=== PATIENT | male | born 1960 | race Caucasian/White ===

== ENCOUNTER 2019-10-28 06:56 | Emergency (ER) | payer MEDICARE, MEDICAID, SELFPAY ==
[2019-10-28 06:58] VITALS: BP 157/88; PULSE 101; RESP 17; O2SAT 96; BMI 28.5
--- NOTE | 2019-10-28 07:18 | XR_ITS ---
PROCEDURE: XR HAND LT MIN 3V CLINICAL INDICATION: pain COMPARISON: No exams were available for comparison FINDINGS: No fracture or dislocation. No lytic or blastic change. There is normal mineralization. The joint spaces are well-preserved. No significant degenerative/arthritic changes. No erosive changes evident. Other findings:There is some soft tissue swelling at the distal aspect of the 4th finger IMPRESSION: Soft tissue swelling otherwise negative Dictated by: Devyn Modi MD 10/28/2019 07:45 Electronically signed by Devyn Modi MD in [place] 10/28/2019 07:45
--- NOTE | 2019-10-28 07:48 | HMH.EDGENADL ---
ED Disposition Clinical Impression: Injury of finger Qualifiers: Encounter type: initial encounter Laterality: left Qualified Code(s): S69.92XA - Unspecified injury of left wrist, hand and finger(s), initial encounter Hematoma, subungual, finger, left Qualifiers: Encounter type: initial encounter Qualified Code(s): S60.10XA - Contusion of unspecified finger with damage to nail, initial encounter Disposition: Home, Self-Care Condition on Discharge: Good Instructions: DI for Finger Sprain Additional Instructions: use meds and see pcp for follow up Prescriptions: cephALEXin [Keflex 500mg Cap] 500 mg PO TID #30 cap Transmission Status: Pending to [facility] Referrals: Sameera Daily [Primary Care Provider] - - Critical Care Critical Care Time: No Attestation: On 10/28/19, the high probability of a clinically significant, sudden or life threatening deterioration of the following system(s) required my full and direct attention, intervention and personal management. The time I documented below is in addition to time spent performing reported procedures but includes the following listed in this critical care notation. Medical Decision Making - Medical Records Medical records reviewed: Yes: I reviewed the patient's medical records. - Petey Inquiry Pt receiving controlled substance: No Vital Signs: 10/28/19 06:58 Pulse Rate [Radial] 101 H Respiratory Rate 17 Blood Pressure [Right Arm] 157/88 H Blood Pressure Mean [Right Arm] 111 Blood Pressure Source [Right Arm] Automatic Cuff Blood Pressure Position [Right Arm] Sitting 02 Sat by Pulse Oximetry 96 Oxygen Delivery Method Room Air - Lab Data Lab results reviewed: Yes: I reviewed the patient's lab results. - Radiology Data #1 Image(s): Hand Image Reviewed: Yes I reviewed the patient's radiology image Preliminary Findings: No Fracture Seen General Adult HPI - General Chief complaint: PAIN Stated complaint: AO 10/23 injured Left index finger Time Seen by Provider: 10/28/19 07:15 Mode of Arrival: Ambulatory Source of Information: Patient, Medical Record Limitations: No Limitations Description of Symptoms (Recalled from ER Triage Doc. by RN): Hit his left ring finger with a hammer on Saturday - History of Present Illness HPI narrative: injured lt fourth finger a few days ago at home hit with hammer -has swelling and reddness and persistent pain Onset (ago): day(s) Location: left, upper extremity Severity: moderate Associated symptoms: denies other symptoms Treatments prior to arrival: none - Related Data Home Medications Medication Instructions Recorded Confirmed Amitriptyline HCl 100 mg PO DAILY 02/24/19 02/24/19 Gabapentin [Gabapentin 400mg Cap] 400 mg PO TID 02/24/19 02/24/19 Hydrocodone/Acetaminophen 1 each PO Q6HP PRN 02/24/19 02/24/19 [Hydrocodone-Acetamin 10-325 mg] Insulin Glargine,Hum.rec.anlog 15 units SQ DAILY 02/24/19 02/24/19 [Lantus Solostar 100 Units/mL 3mL flexpen] Insulin Glargine,Hum.rec.anlog 50 units SQ HS 02/24/19 02/24/19 [Lantus Solostar 100 Units/mL 3mL flexpen] Metoprolol Tartrate [Lopressor 25 mg PO DAILY 02/24/19 02/24/19 25mg tablet] Trazodone HCl 50 mg PO DAILY 02/24/19 02/24/19 glipiZIDE [Glipizide ER] 10 mg PO DAILY 02/24/19 02/24/19 lisinopriL [Lisinopril 10mg Tab] 10 mg PO DAILY 02/24/19 02/24/19 Previous Rx's Medication Instructions Recorded Ibuprofen [Ibuprofen 800mg 800 mg PO Q8HP PRN #20 tab 02/24/19 Tablet] cephALEXin [Keflex 500mg Cap] 500 mg PO TID #30 cap 10/28/19 Allergies Allergy/AdvReac Type Severity Reaction Status Date / Time Penicillins [PENICILLINS] Allergy Mild Verified 10/30/17 15:24 [facility] History - Hepatitis A Screen Drug use history?: No High risk sexual behaviors?: No History of sexually transmitted infection?: No Currently employed?: No Childcare worker?: No Do you have indoor plumbing?: Yes Do you
[2019-10-28 08:04] VITALS: BP 154/88; PULSE 81; RESP 18; TEMP 36.9; O2SAT 98
== END 2019-10-28 08:00 | disposition home or self-care (01) ==
PROVIDERS: Emergency Provider Emergency Medicine; PCP Family Medicine
DX: S60.142A Contusion of left ring finger with damage to nail, initial encounter (principal); W22.8XXA Striking against or struck by other objects, initial encounter; E11.9 Type 2 diabetes mellitus without complications; Z79.4 Long term (current) use of insulin; I10 Essential (primary) hypertension; Z88.0 Allergy status to penicillin
CPT/HCPCS: 11740; 73130; 99282

== ENCOUNTER → 2022-10-15 09:53 | Outpatient (POV) | payer MEDICARE, MEDICAID, SELFPAY ==
[2022-10-15 09:57] VITALS: BP 132/68; PULSE 97; RESP 20; O2SAT 94; BMI 30.6
--- NOTE | 2022-10-15 10:15 | EXP.PAIN.OV ---
HPI Data of Consult Patient: new to practice Consult date: 10/15/22 Requesting Physician: Lise Stewart APRN Consult Narrative Reason for consult: Low back pain, left leg pain, left hip pain History of present illness: Mr. Baugh is a 62 year old male who presents today as a new patient. He is a referral from [facility] primary care office. Today he rates his pain an 8 out of 10. Patient states his pain is all in his low back with radiating symptoms into his left hip and left leg. Patient does describe this as a constant aching, throbbing sensation that is worse with increased activity. He denies any specific trauma or injury that initially led to the symptoms. He does state that it progressively worsened over time and that it has been going on for years. Patient also has chronic left shoulder pain related to a previous rotator cuff tear and 2 different surgical interventions to repair this tear. Patient is a diabetic and also has a significant health history of COPD and peripheral artery disease. He does state that he is scheduled for surgical procedure at [place] on the of this month to deal with arterial blockages in his bilateral legs. Patient does also have nonhealing ulcers and states that he has also been told that he needs to have some toes on his left foot amputated. Patient denies any recent imaging. Patient states he has tried [id number] Tylenol and ibuprofen along with heat and ice and topicals such as IcyHot with minimal improvement. Patient states he has had physical therapy in the past however this was for his shoulder. Patient was being prescribed gabapentin 600 mg 3 times a day and Percocet 7.5 mg 4 times a day from an outside provider. He states that he has been on this medication for the last 5 years with this provider and at his last visit he states his urine drug screen did not show gabapentin and she stopped both of these medications. He does state that he is planning to go back and discussed this with her. He states that the medication did significantly help his symptoms and that he was able to move around easier. Patient does also states that the weather typically affects his pain more and does believe it is related to a lot of arthritis. His Petey is [phone]. Its been reviewed and appropriate. CC: Lise Stewart APRN [facility] Disclaimer: The information contained in this section may have been updated after the patient was seen, as this information can be updated by other users. Medical History (Updated 10/15/22 @ 10:42 by Lise Stewart APRN) Anxiety COPD (chronic obstructive pulmonary disease) Depression Diabetes HLD (hyperlipidemia) HTN (hypertension) Vitamin D deficiency Surgical History (Updated 10/15/22 @ 10:02 by Katja Sarabia RN) H/O rotator cuff surgery Social History Smoking Status: Current every day smoker tobacco type: cigarettes packs per day: 1 second hand exposure: Yes alcohol intake: never current occupational status: other Travel in the last 8 weeks: None housing: house Review of Systems Review of Systems Review of systems:: pertinent systems reviewed and negative unless documented below Review of systems (narrative): Review of Systems: General: No recent weight changes, no fever, no sleep disturbances Respiratory: No cough, no shortness of air, no recurring pulmonary infections Cardiovascular/peripheral vascular: No chest pain, no palpitations, no edema, no shortness of breath Gastrointestinal: No new onset incontinence, normal bowel movements reported Genitourinary: No new onset incontinence Musculoskeletal: Low back pain, left leg pain, left hip pain, chronic left shoulder pain Psychiatric: [Normal mood/affect] Neurological: [Denies weakness in extremities], [denies balance issues] Meds Home Medications and Allergies Home Medications Medication Instructions Recorded Confirmed Type amitriptyline 100 mg tablet 100 mg PO DAILY Depr
== END ==
PROVIDERS: Visit Provider Nurse Practitioner Family
DX: M54.16 Radiculopathy, lumbar region (principal); M54.50 Low back pain, unspecified; M25.552 Pain in left hip; M25.512 Pain in left shoulder; M79.605 Pain in left leg; G89.4 Chronic pain syndrome; M46.1 Sacroiliitis, not elsewhere classified
CPT/HCPCS: 99202; 99212; G0463

== ENCOUNTER → 2022-12-10 15:07 | Outpatient (CLI) | payer MEDICARE, MEDICAID, SELFPAY ==
[2022-12-10 19:17] LABS: Basophils # 0.1 K/mm3 (0-0.2); Basophils % 0.5 % (0.1-2.0); Eosinophils # 0.5 K/mm3 (0.0-0.4); Eosinophils % 3.4 % (0.1-12.0); Hematocrit 49.1 % (42.0-52.0); Hemoglobin 15.2 g/dL (14.1-18.0); Lymphocytes # 2.4 K/mm3 (0.7-4.5); Lymphocytes % 18.5 % (10-50); Mean Corpuscular Hemoglobin 30.5 pg (27.0-31.2); Mean Corpuscular Volume 98.3 fl (80-94); Mean Platelet Volume 8.7 fl (7.4-10.4); Monocytes # 1.2 K/mm3 (0.1-1.0); Monocytes % 8.9 % (1.7-9.3); Neutrophils % 68.7 % (37.0-80.0); Platelet Count 364 K/mm3 (142-424); Red Blood Count 4.99 M/mm3 (4.60-6.20); Red Cell Distribution Width 14.3 % (11.5-17.5); White Blood Count 13.1 K/mm3 (4.8-10.8)
[2022-12-10 19:23] LABS: Alanine Aminotransferase 27 U/L (12-78); Albumin Level 3.8 g/dl (3.5-5.0); Alkaline Phosphatase 115 U/L (38-126); Anion Gap 13.7 mEq/L (5-15); Aspartate Amino Transferase 36 U/L (17-59); Bilirubin,Total 0.2 mg/dl (0.2-1.3); Blood Urea Nitrogen 23 mg/dl (9-20); Calcium 10.1 mg/dl (8.4-10.2); Carbon Dioxide 28 mmol/L (22.0-30.0); Chloride 101 mmol/L (98-107); Chol/HDL Ratio 4.2 (1-3.5); Cholesterol 239 mg/dl (140-200); Estimated Glomerular Filt Rate 76 ml/min (>60); GFR (African American) 92 ML/MIN (>60); Globulin 3.7 g/dL (1.3-3.2); Glucose 91 mg/dl (74-100); HDL Cholesterol 57 mg/dl (40-60); Potassium 4.7 mmoL/L (3.5-5.1); Sodium 138 mmol/L (136-145); Total Protein,Serum 7.5 g/dl (6.3-8.2); Triglycerides 152 mg/dl (30-150); VLDL Cholesterol 30 mg/dL (0-40)
[2022-12-10 19:35] LABS: Direct LDL Cholesterol 145.58 mg/dL (100-129)
[2022-12-10 20:25] LABS: Hemoglobin A1C 7.4 % (4.0-6.0)
== END ==
PROVIDERS: PCP Family Medicine; Visit Provider Family Medicine
DX: E55.9 Vitamin D deficiency, unspecified (principal); W19.XXXA Unspecified fall, initial encounter; E11.9 Type 2 diabetes mellitus without complications; I10 Essential (primary) hypertension; Z79.4 Long term (current) use of insulin
CPT/HCPCS: 80053; 80061; 83036; 85025

== ENCOUNTER 2023-01-03 08:11 | Day surgery (SDC) | payer MEDICARE, SELFPAY ==
[2023-01-03] VITALS (16 sets, daily range): BP systolic 125–195; BP diastolic 75–116; PULSE 64–99; RESP 17–18; O2SAT 92–98; BMI 29.9
--- NOTE | 2023-01-03 07:18 | IR_ITS ---
APPROVED REPORT Patient Location: Outpatient PROCEDURES Catheter placement in the right common iliac artery Right common iliac artery antegrade angiogram with unilateral runoff to the right foot INDICATION Peripheral artery disease peripheral artery disease, [place] claudication class V with lower extremity ulcer, Informed consent was obtained prior to the procedure. COMPLICATIONS NONE Estimated Blood Loss: LESS THAN 10 ML TECHNIQUE 1% lidocaine used to anesthetize the left femoral groin. The left femoral artery was accessed via the Seldinger technique. Using fluoroscopic guidance a rim catheter was advanced into the distal abdominal aorta and then used to cannulate the right common iliac artery. Right common iliac artery antegrade angiography was performed with unilateral runoff to the right foot. At the end the procedure patient was transferred to the postop holding in stable addition for sheath removal ANGIOGRAPHIC RESULTS Right common internal and external iliac arteries are widely patent. The right common femoral artery is patent. The right profunda femoris artery is patent. Right superficial femoral artery is occluded after approximately 1 cm distal from its origin off the right common femoral artery. The entire vessel is occluded. There is occlusion of the stent within the abductor canal. The popliteal artery recanalizes at the pregeniculate level and then provides slow three-vessel runoff into the right foot IMPRESSION Occlusion of the entire right superficial femoral artery and proximal half of the popliteal artery Slow three-vessel runoff below the knee PLAN 1. Patient continues to smoke tobacco and is probably not a good candidate for percutaneous revascularization at this time. Stenting this vessel would likely make him a noncandidate in the future for femoropopliteal surgery. I would recommend referral to vascular surgery with consideration of femoropopliteal surgery 2. Strongly recommend tobacco cessation 3. LDL less than 55 4. Xarelto 2.5 twice daily plus aspirin 81 mg daily 5. Tight control of diabetes Electronically signed by : Kurt Johnston MD 01/03/2023 13:20:39
[2023-01-03 08:47] LABS: Basophils # 0.1 K/mm3 (0-0.2); Basophils % 0.6 % (0.1-2.0); Eosinophils # 0.2 K/mm3 (0.0-0.4); Eosinophils % 1.7 % (0.1-12.0); Hematocrit 51.6 % (42.0-52.0); Lymphocytes # 1.7 K/mm3 (0.7-4.5); Lymphocytes % 15.3 % (10-50); Mean Corpuscular HGB Conc 30.9 g/dL (31.8-35.4); Mean Corpuscular Hemoglobin 29.4 pg (27.0-31.2); Mean Corpuscular Volume 95.2 fl (80-94); Mean Platelet Volume 7.6 fl (7.4-10.4); Monocytes # 0.7 K/mm3 (0.1-1.0); Monocytes % 6.3 % (1.7-9.3); Neutrophils # 8.3 K/mm3 (1.8-7.8); Neutrophils % 76.1 % (37.0-80.0); Platelet Count 352 K/mm3 (142-424); Red Blood Count 5.43 M/mm3 (4.60-6.20); Red Cell Distribution Width 13.9 % (11.5-17.5); White Blood Count 10.9 K/mm3 (4.8-10.8)
[2023-01-03 08:57] LABS: Anion Gap 12.7 mEq/L (5-15); Blood Urea Nitrogen 15 mg/dl (9-20); Calcium 10.1 mg/dl (8.4-10.2); Carbon Dioxide 29 mmol/L (22.0-30.0); Chloride 97 mmol/L (98-107); Creatinine Clearance Estimated 163 mL/min (50-200); Estimated Glomerular Filt Rate 115 ml/min (>60); GFR (African American) 139 ML/MIN (>60); Glucose 224 mg/dl (74-100); Potassium 4.7 mmoL/L (3.5-5.1); Sodium 134 mmol/L (136-145)
== END 2023-01-03 14:13 | disposition home or self-care (01) ==
PROVIDERS: PCP Family Medicine; Visit Provider Internal Medicine
DX: I70.238 Atherosclerosis of native arteries of right leg with ulceration of other part of lower leg (principal); T82.856A Stenosis of peripheral vascular stent, initial encounter; E11.9 Type 2 diabetes mellitus without complications; J44.9 Chronic obstructive pulmonary disease, unspecified; E55.9 Vitamin D deficiency, unspecified; F17.210 Nicotine dependence, cigarettes, uncomplicated; I77.1 Stricture of artery; L97.913 Non-pressure chronic ulcer of unspecified part of right lower leg with necrosis of muscle; I10 Essential (primary) hypertension; Z79.4 Long term (current) use of insulin; Z79.899 Other long term (current) drug therapy
CPT/HCPCS: 36247; 75710; 80048; 85025; 99152; C1725; C1769; C1894; J1644; Q9966

== ENCOUNTER → 2023-01-14 20:41 | Outpatient (CLI) | payer MEDICARE, SELFPAY | PROVIDERS: PCP Family Medicine; Visit Provider Family Medicine | DX: L97.913 Non-pressure chronic ulcer of unspecified part of right lower leg with necrosis of muscle (principal); B96.89 Other specified bacterial agents as the cause of diseases classified elsewhere; B96.4 Proteus (mirabilis) (morganii) as the cause of diseases classified elsewhere; B96.1 Klebsiella pneumoniae [K. pneumoniae] as the cause of diseases classified elsewhere | CPT/HCPCS: 87070; 87077; 87186; 87205 ==

== ENCOUNTER 2023-01-16 09:26 | Emergency (ER) | payer MEDICARE, SELFPAY ==
[2023-01-16] VITALS (7 sets, daily range): BP systolic 149–165; BP diastolic 69–98; PULSE 90–95; RESP 20; TEMP 36.9; O2SAT 95–99; BMI 23.0
--- NOTE | 2023-01-16 09:57 | XR_ITS ---
FINAL REPORT CLINICAL HISTORY: Right lower leg infection, eval for SQ gas COMPARISON: None FINDINGS: Two views of the right tibia/fibula were obtained. There is no acute fracture or dislocation. The joint spaces are intact. There are large soft tissue ulcerations along the lateral aspect of the right lower leg. The more superior one measures 4.5 cm in greatest dimension and the more inferior one measures 5.3 cm in greatest dimension. There is no evidence of underlying bony erosion or periosteal reaction. There is no definite subcutaneous emphysema. Venous stent is present in the distal right SFA. IMPRESSION: Ulcerations as above. No definite subcutaneous emphysema. No evidence of underlying bony erosion or periosteal reaction. Reviewed, Interpreted and Dictated by Urban Colbert MD Transcribed by Veronique Parker Authenticated and [facility]
--- NOTE | 2023-01-16 09:58 | HMH.EDGENADL ---
Discharge Plan Disposition Patient Disposition: Left Against Medical Advice Prescriptions Prescriptions: No Action furosemide 40 mg tablet 40 mg PO DAILY PRN (Reason: .) rosuvastatin 40 mg tablet 40 mg PO DAILY albuterol sulfate 90 mcg/actuation HFA aerosol inhaler 2 puff inhalation Q6H PRN (Reason: .) citalopram 10 mg tablet 10 mg PO DAILY gemfibrozil 600 mg tablet 600 mg PO BID lisinopril 20 mg tablet 20 mg PO DAILY metformin 1,000 mg tablet 1,000 mg PO BID Hold Instructions: Resume on 01/06/23. clindamycin HCl 300 mg capsule 300 mg PO TID Rx Instructions: started 11/26/22 x 10 days aspirin 81 mg tablet,delayed release (DR/EC) 81 mg PO DAILY oxycodone-acetaminophen [Percocet] 7.5-325 mg tablet 1 tab PO Q8H PRN (Reason: pain) Qty: 3 0RF gabapentin 600 mg tablet 600 mg PO TID PRN (Reason: .pain) Qty: 30 0RF glipizide 10 MG tablet extended release 24hr 10 mg PO DAILY Patient Comments: TAKE 1 TABLET BY MOUTH 2 TIMES DAILY metoprolol tartrate 25 mg tablet 25 mg PO BID Patient Comments: TAKE ONE TABLET BY MOUTH TWICE DAILY amitriptyline 100 mg tablet 200 mg PO HS cephalexin 500 mg capsule 500 mg PO Q8H mupirocin 2 % ointment 1 applic topical TID insulin lispro [Humalog KwikPen Insulin] 100 unit/mL insulin pen 1 sliding scale dose SQ USEASDIRECTD Rx Instructions: USE SLIDING SCALE TID: 130-149 = 1 UNIT 150-175 = 2 UNITS 176-200 = 3 UNITS 201-250 = 5 UNITS 251-275 = 6 UNITS 276-300 = 7 UNITS 301-325 = 8 UNITS 326-350 = 9 UNITS >351 = 10 UNITS Januvia 50 mg tablet 50 mg PO DAILY Xarelto 2.5 mg tablet 2.5 mg PO BID Referrals Follow up/Referrals: Brent Reece MD [Primary Care Provider] - See instructions Clinical Impressions Clinical Impression: Ulcer of lower extremity, Cellulitis of leg, 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 by RN): pt to ed c/o right lower leg wounds. pt reports a hx of diabetes. pt states his last dressing change was on saturday by his pcp. pt reports his pcp sent him to the ed for IV abx. History of Present Illness HPI narrative: Patient is a 62-year-old male with a known history of peripheral vascular disease had peripheral artery stent that were placed 5 months ago for [facility] he never followed up with his vascular surgeon. He is not on any anticoagulants or antiplatelet agents. States that he had ulcers that began to develop several months after his surgery on the anterior aspect of his right lower extremity. These have been nonhealing and worsening in nature. Most recently they had foul-smelling discharge and erythema extending around the wounds. No fever. He was sent in by his primary care doctor for IV antibiotics. Related Data Home Medications Medication Instructions Recorded Confirmed glipizide 10 mg tablet, extended 10 mg PO DAILY Diabetes 02/24/19 01/14/23 release 24 hr albuterol sulfate 90 mcg/actuation 2 puff inhalation Q6H PRN . 12/04/22 01/14/23 aerosol inhaler amitriptyline 100 mg tablet 200 mg PO HS Depression 12/04/22 01/14/23 citalopram 10 mg tablet 10 mg PO DAILY . 12/04/22 01/14/23 clindamycin HCl 300 mg capsule 300 mg PO TID . 12/04/22 01/14/23 furosemide 40 mg tablet 40 mg PO DAILY PRN . 12/04/22 01/14/23 gemfibrozil 600 mg tablet 600 mg PO BID . 12/04/22 01/14/23 lisinopril 20 mg tablet 20 mg PO DAILY . 12/04/22 01/14/23 metformin 1,000 m
--- NOTE | 2023-01-16 10:01 | EXP.PHA.CONS ---
Pharmacy Consult Date: 01/16/23 Time: 10:01 Referring provider: DR. VILLAFANA Reason for Consult:: VANCOMYCIN DOSING Allergies Allergy/AdvReac Type Severity Reaction Status Date / Time Penicillins [PENICILLINS] Allergy Mild Verified 01/14/23 13:27 Home Medications Medication Instructions Recorded Confirmed Type glipizide 10 mg tablet, extended 10 mg PO DAILY Diabetes 02/24/19 01/14/23 History release 24 hr albuterol sulfate 90 mcg/actuation 2 puff inhalation Q6H PRN . 12/04/22 01/14/23 History aerosol inhaler amitriptyline 100 mg tablet 200 mg PO HS Depression 12/04/22 01/14/23 History citalopram 10 mg tablet 10 mg PO DAILY . 12/04/22 01/14/23 History clindamycin HCl 300 mg capsule 300 mg PO TID . 12/04/22 01/14/23 History furosemide 40 mg tablet 40 mg PO DAILY PRN . 12/04/22 01/14/23 History gemfibrozil 600 mg tablet 600 mg PO BID . 12/04/22 01/14/23 History lisinopril 20 mg tablet 20 mg PO DAILY . 12/04/22 01/14/23 History metformin 1,000 mg tablet 1,000 mg PO BID . 12/04/22 01/14/23 History metoprolol tartrate 25 mg tablet 25 mg PO BID Hypertension 12/04/22 01/14/23 History rosuvastatin 40 mg tablet 40 mg PO DAILY . 12/04/22 01/14/23 History aspirin 81 mg tablet,delayed 81 mg PO DAILY . 12/19/22 01/14/23 History release cephalexin 500 mg capsule 500 mg PO Q8H . 01/03/23 01/14/23 History insulin lispro 100 unit/mL 1 sliding scale dose SQ 01/03/23 01/14/23 History subcutaneous pen (Humalog KwikPen USEASDIRECTD . (U-100) Insulin) mupirocin 2 % topical ointment 1 applic topical TID . 01/03/23 01/14/23 History rivaroxaban 2.5 mg tablet (Xarelto) 2.5 mg PO BID . 01/03/23 01/14/23 History sitagliptin phosphate 50 mg tablet 50 mg PO DAILY . 01/03/23 01/14/23 History (Januvia) gabapentin 600 mg tablet 600 mg PO TID PRN .pain #30 tabs 01/09/23 01/14/23 Rx oxycodone-acetaminophen 7.5 mg-325 1 tab PO Q8H PRN pain #3 tabs 01/14/23 01/14/23 Rx mg tablet (Percocet) New Prescriptions to Start Prescriptions: Height: 1.83 m Weight: 77.111 kg Laboratory Results:: N/A Medical History: Medical History (Updated 12/24/22 @ 18:53 by Brent Reece MD) Anxiety Atherosclerosis of lower extremity with ulceration Cellulitis of right lower extremity COPD (chronic obstructive pulmonary disease) Depression Diabetes HLD (hyperlipidemia) HTN (hypertension) Insulin dependent diabetes mellitus 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 Drug selected: Vancomycin Loading dose (mg): Vd (liters): 61.7 (factor used: 0.8 L/kg) Hector (hr-1): 0.106 Half life (hrs): 6.54 CLvanco=?? 6.540 L/hr Recommended dose: 1750 mg Interval: 12 hrs Infusion time (hrs): 2.0 Predicted peak (mcg/mL): 35.5 Predicted trough (mcg/mL): 12.30 Total body weight is being used for vancomycin dosing. Recommendations: Give Vancomycin 1750 mg q 12 hrs with an expected Cpeak of 35.5 mcg/ml and an expected Ctrough of 12.30 mcg/ml AUC 0-24 /LAYLA Data: LAYLA 0.5 mcg/mL:?? AUC/LAYLA:? 1070.3 LAYLA 1.0 mcg/mL:?? AUC/LAYLA:? 535.2 --------- LAYLA 1.5 mcg/mL:?? AUC/LAYLA:? 356.8 LAYLA 2.0 mcg/mL:?? AUC/LAYLA:? 267.6 Thank you for the consult, will continue to follow. -NIK PUCKETT, SERJIOD
--- NOTE | 2023-01-16 10:28 | PC.NURSE ---
allergy bracelet placed on patients wrist.
[2023-01-16 10:35] LABS: Basophils # 0.1 K/mm3 (0-0.2); Basophils % 0.5 % (0.1-2.0); Eosinophils # 0.2 K/mm3 (0.0-0.4); Eosinophils % 1.5 % (0.1-12.0); Hematocrit 51.4 % (42.0-52.0); Hemoglobin 15.7 g/dL (14.1-18.0); Lymphocytes # 1.9 K/mm3 (0.7-4.5); Lymphocytes % 16.9 % (10-50); Mean Corpuscular HGB Conc 30.5 g/dL (31.8-35.4); Mean Corpuscular Hemoglobin 28.8 pg (27.0-31.2); Mean Corpuscular Volume 94.4 fl (80-94); Mean Platelet Volume 7.7 fl (7.4-10.4); Monocytes # 0.9 K/mm3 (0.1-1.0); Neutrophils # 8.3 K/mm3 (1.8-7.8); Neutrophils % 73.1 % (37.0-80.0); Platelet Count 395 K/mm3 (142-424); Red Blood Count 5.44 M/mm3 (4.60-6.20); Red Cell Distribution Width 13.9 % (11.5-17.5); White Blood Count 11.3 K/mm3 (4.8-10.8)
[2023-01-16 10:36] LABS: Lactic Acid 1.2 mmol/L (0.7-2.1)
[2023-01-16 10:40] LABS: Alanine Aminotransferase 26 U/L (12-78); Albumin Level 3.9 g/dl (3.5-5.0); Albumin/Globulin Ratio 0.8 (1.1-1.8); Alkaline Phosphatase 124 U/L (38-126); Anion Gap 10.1 mEq/L (5-15); Aspartate Amino Transferase 31 U/L (17-59); Bilirubin,Total 0.3 mg/dl (0.2-1.3); Blood Urea Nitrogen 9 mg/dl (9-20); Calcium 9.9 mg/dl (8.4-10.2); Carbon Dioxide 33 mmol/L (22.0-30.0); Chloride 97 mmol/L (98-107); Creatinine Clearance Estimated 122 mL/min (50-200); Estimated Glomerular Filt Rate 115 ml/min (>60); GFR (African American) 139 ML/MIN (>60); Globulin 4.7 g/dL (1.3-3.2); Glucose 208 mg/dl (74-100); Potassium 4.1 mmoL/L (3.5-5.1); Sodium 136 mmol/L (136-145); Total Protein,Serum 8.6 g/dl (6.3-8.2)
[2023-01-16 10:42] LABS: Activated Partial Thrombo Time 28.4 seconds (22.8-30.6); INR 1.04 (0.9-1.1); Prothrombin Time 11.2 seconds (10.1-12.5)
--- NOTE | 2023-01-16 11:01 | PC.NURSE ---
placed call to [facility] for transfer, awaiting call back
--- NOTE | 2023-01-16 11:33 | PC.NURSE ---
placed call to [facility] for transfer
--- NOTE | 2023-01-16 12:32 | PC.NURSE ---
placed call to [facility] for transfer
[2023-01-16 12:34] LABS: Erythrocyte Sedimentation Rate 19 mm/hr (0-20)
--- NOTE | 2023-01-16 12:46 | PC.NURSE ---
[facility]
--- NOTE | 2023-01-16 12:55 | PC.NURSE ---
pt deciding to sign out AMA. spoke with pt about risks associated. pt states to MD he has some personal issues he needs to take care of and then he would drive himself to [facility]. See MD note for detailed note.
[2023-01-18 10:58] LABS: C-Reactive Protein 9.8 mg/L (0-4)
== END 2023-01-16 13:16 | disposition left against medical advice (07) ==
PROVIDERS: Emergency Provider Student in an Organized Health Care Education/Training Program; PCP Family Medicine
DX: E11.622 Type 2 diabetes mellitus with other skin ulcer (principal); E11.51 Type 2 diabetes mellitus with diabetic peripheral angiopathy without gangrene; F41.9 Anxiety disorder, unspecified; J44.9 Chronic obstructive pulmonary disease, unspecified; F32.A Depression, unspecified; E78.5 Hyperlipidemia, unspecified; I10 Essential (primary) hypertension; F17.210 Nicotine dependence, cigarettes, uncomplicated; L97.913 Non-pressure chronic ulcer of unspecified part of right lower leg with necrosis of muscle
CPT/HCPCS: 73590; 80053; 83605; 85025; 85610; 85651; 85730; 86140; 87040; 87070; 87077; 87186; 87205; 96361; 96365; 96368; 96375; 99285

== ENCOUNTER → 2023-02-18 11:47 | Outpatient (CLI) | payer MEDICARE, SELFPAY | PROVIDERS: PCP Family Medicine; Visit Provider Family Medicine | DX: L03.115 Cellulitis of right lower limb (principal); B96.89 Other specified bacterial agents as the cause of diseases classified elsewhere | CPT/HCPCS: 87070; 87205 ==

== ENCOUNTER → 2023-04-03 23:00 | Outpatient (CLI) | payer MEDICARE, SELFPAY ==
[2023-04-03 21:13] LABS: Benzodiazepines Screen,Urine Negative ng/ml (<200)
[2023-04-03 21:14] LABS: Amphetamine/Metha Screen,Urine Negative ng/ml (<1000); Barbiturates Screen,Urine Negative ng/ml (<200)
[2023-04-03 21:17] LABS: Cocaine Screen,Urine Negative ng/ml (<300); Methadone Screen,Urine Negative ng/ml (<300); Opiate Screen,Urine Negative ng/ml (<300); Phencyclidine Screen,Urine Negative ng/ml (<25)
[2023-04-03 21:23] LABS: Cannabinoid Screen,Urine Negative ng/ml (<50)
== END ==
PROVIDERS: PCP Family Medicine; Visit Provider Family Medicine
DX: Z79.899 Other long term (current) drug therapy (principal)
CPT/HCPCS: 80305

== ENCOUNTER 2023-04-29 11:25 | Emergency (ER) | payer MEDICARE, SELFPAY ==
[2023-04-29 11:26] VITALS: BP 135/67; PULSE 78; RESP 18; TEMP 36.6; O2SAT 97; BMI 26.9
--- NOTE | 2023-04-29 11:39 | PC.NURSE ---
Dr. Lynch at [facility] for pt eval
--- NOTE | 2023-04-29 11:49 | ED_ITS ---
Discharge Plan Disposition Patient Disposition: Home, Self-Care Chief Complaint: Skin/Abscess/Foreign Body Prescriptions Prescriptions: No Action furosemide 40 mg tablet 40 mg PO DAILY PRN (Reason: .) rosuvastatin 40 mg tablet 40 mg PO DAILY gemfibrozil 600 mg tablet 600 mg PO BID lisinopril 20 mg tablet 20 mg PO DAILY metformin 1,000 mg tablet 1,000 mg PO BID Hold Instructions: Resume on 01/06/23. aspirin 81 mg tablet,delayed release (DR/EC) 81 mg PO DAILY oxycodone-acetaminophen [Percocet] 7.5-325 mg tablet 1 tab PO Q8H PRN (Reason: pain) Qty: 45 0RF cephalexin 500 mg capsule 500 mg PO Q8H 10 Days Qty: 30 0RF levofloxacin 750 mg tablet 750 mg PO DAILY 10 Days Qty: 10 0RF Rx Instructions: take one tab daily albuterol sulfate 90 mcg/actuation HFA aerosol inhaler 2 puff inhalation Q6H PRN (Reason: .) Qty: 6.7 0RF citalopram 10 mg tablet 10 mg PO DAILY Qty: 90 3RF gabapentin 600 mg tablet 600 mg PO TID PRN (Reason: .pain) Qty: 30 0RF sulfamethoxazole-trimethoprim [Bactrim DS] 800-160 mg tablet 1 tab PO BID Qty: 20 0RF Januvia 50 mg tablet See Rx Instructions .ROUTE .COMPLEX Qty: 90 0RF Dose Instruction: TAKE 1 TABLET BY MOUTH ONCE DAILY Rx Instructions: TAKE 1 TABLET BY MOUTH ONCE DAILY amitriptyline 100 mg tablet See Rx Instructions .ROUTE .COMPLEX Qty: 180 0RF Dose Instruction: Take 2 Tablets by mouth nightly. Rx Instructions: Take 2 Tablets by mouth nightly. insulin glargine [Lantus Solostar U-100 Insulin] 100 unit/mL (3 mL) insulin pen See Rx Instructions SQ DAILY Qty: 15 4RF Rx Instructions: 15 units in the AM/ 40 units in PM subcutaneously daily; insulin lispro [Humalog KwikPen Insulin] 100 unit/mL insulin pen 1 sliding scale dose SQ USEASDIRECTD Qty: 15 10RF Rx Instructions: USE SLIDING SCALE TID: 130-149 = 1 UNIT 150-175 = 2 UNITS 176-200 = 3 UNITS 201-250 = 5 UNITS 251-275 = 6 UNITS 276-300 = 7 UNITS 301-325 = 8 UNITS 326-350 = 9 UNITS >351 = 10 UNITS (DME) lancets Misc See Rx Instructions .Route Qty: 200 1RF Rx Instructions: As directed alcohol swabs Pads, Medicated See Rx Instructions topical .COMPLEX Qty: 200 2RF Rx Instructions: topically daily; glipizide 10 MG tablet extended release 24hr 10 mg PO DAILY Patient Comments: TAKE 1 TABLET BY MOUTH 2 TIMES DAILY metoprolol tartrate 25 mg tablet 25 mg PO BID Patient Comments: TAKE ONE TABLET BY MOUTH TWICE DAILY Xarelto 2.5 mg tablet 2.5 mg PO BID Referrals Follow up/Referrals: Brent Reece MD [Primary Care Provider] - See instructions Clinical Impressions Clinical Impression: Rash, Cellulitis, Osteomyelitis Instructions Patient Instructions: DI for Skin Abscess Discharge ED Provider: Sherwin Lynch [facility] Adult HPI General Chief complaint: Skin/Abscess/Foreign Body Stated complaint: rash on legs, back, arms Time Seen by Provider: 04/29/23 11:31 Mode of Arrival: Ambulatory Source of Information: Patient Limitations: No Limitations Description of Symptoms (Recalled from ER Triage Doc. by RN): pt presents to ED c/o rash x 2 days. pt states he first noticed the rash on his abdomen. reports mild itching, denies SOA. pt states he did have a change in a cardiac medication 2 weeks ago but denies any new medication or changes detergents/soaps. History of Present Illness HPI narrative: 63-year-old male history of hypertension, hyperlipidemia, CAD PAD diabetes is, right lower extremity cellulitis and osteomyelitis with wound VAC presenting with rash. Patient states that he started having a rash for the past 2 days. Started on his legs and now has spread to his trunk, extremities, neck and e verywhere else. Does not itch or burn, asymptomatic otherwise. Patient states that he has not had a wound VAC on his right lower extremity the past 2 days. He also had recent cardiac medication change about 2 weeks prior prior to this visit. Denies fevers or chills, intraoral lesions, blood in his stool, difficulty breathing, facial swelling, or any other concerns. Related Data Home Medications Medication Instructions Recorded Confirmed glipizide 10 mg tablet, extended 10 mg PO DAILY Diabetes 02/24/19 04/03/23 release 24 hr furosemide 40 mg tablet 40 mg PO DAILY PRN . 12/04/22 04/03/23 gemfibrozil 600 mg tablet 600 mg PO BID . 12/04/22 04/03/23 lisinopril 20 mg tablet 20 mg PO DAILY . 12/04/22 04/03/23 metformin 1,000 mg tablet 1,000 mg PO BID . 12/04/22 04/03/23 metoprolol tartrate 25 mg tablet 25 mg PO BID Hypertension 12/04/22 04/03/23 rosuvastatin 40 mg tablet 40 mg PO DAILY . 12/04/22 04/03/23 aspirin 81 mg tablet,delayed 81 mg PO DAILY . 12/19/22 04/03/23 release rivaroxaban 2.5 mg tablet (Xarelto) 2.5 mg PO BID . 01/03/23 04/03/23 Previous Rx's Medication Instructions Recorded albuterol sulfate 90 mcg/actuation 2 puff inhalation Q6H PRN . #6.7 02/12/23 aerosol inhaler grams citalopram 10 mg tablet 10 mg PO DAILY . #90 tabs 02/13/23 gabapentin 600 mg tablet 600 mg PO TID PRN .pain #30 tabs 02/13/23 sulfamethoxazole 800 1 tab PO BID #20 tabs 02/27/23 mg-trimethoprim 160 mg tablet (Bactrim DS) cephalexin 500 mg capsule 500 mg PO Q8H 10 days #30 caps 03/06/23 levofloxacin 750 mg tablet 750 mg PO DAILY Infection 10 days 03/06/23 #10 tabs oxycodone-acetaminophen 7.5 mg-325 1 tab PO Q8H PRN pain #45 tabs 04/03/23 mg tablet (Percocet) alcohol swabs See Rx Instructions topical 04/10/23 .COMPLEX #200 ea amitriptyline 100 mg tablet See Rx Instructions .Route 04/10/23 .COMPLEX #180 tabs insulin glargine 100 unit/mL (3 See Rx Instructions SQ DAILY #15 mL 04/10/23 mL) subcutaneous pen (Lantus Solostar U-100 Insulin) insulin lispro 100 unit/mL 1 sliding scale dose SQ 04/10/23 subcutaneous pen (Humalog KwikPen USEASDIRECTD . #15 mL (U-100) Insulin) lancets #200 ea 04/10/23 sitagliptin phosphate 50 mg tablet See Rx Instructions .Route 04/10/23 (Januvia) .COMPLEX #90 tabs Allergies Allergy/AdvReac Type Severity Reaction Status Date / Time Penicillins [PENICILLINS] Allergy Mild Verified 04/03/23 14:27 [facility] Disclaimer: The information contained in this section may have been updated after the patient was seen, as this information can be updated by other users. 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 PVD (peripheral vascular disease) Right foot ulcer Venous stasis dermatitis of both lower extremities Vitamin D deficiency Surgical History H/O rotator cuff surgery LEFT Social History Smoking Status: Current every day smoker tobacco type: cigarettes packs per day: 1 second hand exposure: Yes alcohol intake: never current occupational status: other Travel in the last 8 weeks: None housing: house ROS Obtained: Yes All systems reviewed & no additional complaints except as documented Physical Exam General General appearance: alert and in no apparent distress Head Head exam: atraumatic and normocephalic Eye Eye exam: Present normal appearance, PERRL and EOMI ENT ENT exam: Present normal exam and mucous membranes moist Neck Neck exam: Present normal inspection, full ROM and trachea midline Respiratory Respiratory exam: Absent respiratory distress, wheezes, stridor, accessory muscle use or prolonged expiratory phase Cardiovascular Cardiovascular exam: Present normal rhythm Abdominal Exam Abdominal exam: Present soft; Absent distention, tenderness, guarding, rebound or rigidity Extremities Exam Extremities exam: Absent edema Neurological Exam Neurological exam: Present alert, oriented X3, CN II-XII intact and normal gait; Absent motor sensory deficit Skin Skin exam: Present warm, dry and rash (Purpuric, not blanching on medial/proximal thighs. Blanching and macular throughout the rest of his body. No evidence of excoriations. No intraoral lesions.); Absent diaphoresis or erythema Medical Decision Making Medical Records Medical records reviewed: Yes I reviewed the patient's medical records. Petey Inquiry Pt receiving controlled substance: No Petey was queried for this patient: No Vital Signs: 04/29/23 11:26 04/29/23 12:05 Temperature 97.9 F Temperature Source Oral Pulse Rate 98 H Pulse Rate [Right Radial] 78 Respiratory Rate 18 Blood Pressure 121/77 Blood Pressure [Right Arm] 135/67 Blood Pressure Mean [Right Arm] 89 Blood Pressure Source [Right Arm] Automatic Cuff Blood Pressure Position [Right Arm] Sitting 02 Sat by Pulse Oximetry 97 96 Oxygen Delivery Method Room Air Lab Data Lab Results 04/29/23 11:57: WBC 8.3, RBC 5.40, Hgb 15.9, Hct 50.8, MCV 94.2 H, MCH 29.4, MCHC 31.3 L, RDW 14.8, Plt Count 367, MPV 8.0, Neut % (Auto) 75.4, Lymph % (Auto) 17.1, [place] % (Auto) 5.6, Eos % (Auto) 1.5, Baso % (Auto) 0.4, Neut # (Auto) 6.2, Lymph # (Auto) 1.4, [place] # (Auto) 0.5, Eos # (Auto) 0.1, Baso # (Auto) 0.0, Sodium 135 L, Potassium 4.0, Chloride 98, Carbon Dioxide 31 H, Anion Gap 10.0, BUN 9, Creatinine 0.70, Estimated Creat Clear 105, Estimated GFR 115, Est GFR ( Amer) 139, Glucose 243 H, Lactate 1.7, Calcium 8.9, Total Bilirubin 0.6, AST 30, ALT 26, Alkaline Phosphatase 136 H, Total Protein 7.9, Albumin 3.5, Globulin 4.4 H, Albumin/Globulin Ratio 0.8 L 04/29/23 11:57 04/29/23 11:57 Orders (Tests/Meds): ED MEDICATIONS Discontinued Medications Generic Name Dose Route Start Last Admin Trade Name Freq PRN Reason Stop Dose Admin Dalbavancin 1,500 mg/ Dextrose 250 mls @ 500 mls/hr 04/29/23 11:47 04/29/23 12:07 IV 04/29/23 11:48 500 mls/hr ONCE ONE Administration ORDERS Category Date Time Status CBC w/Auto Diff [Complete Blood Count Auto Diff] Stat Lab 01/01/24 11:57 Completed CMP [Comprehensive Metabolic Panel] Stat Lab 04/29/23 11:57 Completed Lactic Acid Stat Lab 04/29/23 11:57 Completed Blood Culture Stat Micro 04/29/23 12:05 Received Medical Decision Narrative: 63-year-old male history of hypertension, hyperlipidemia, CAD PAD diabetes is, right lower extremity cellulitis and osteomyelitis with wound VAC presenting with rash. Patient states that he started having a rash for the past 2 days. Started on his legs and now has spread to his trunk, extremities, neck and everywhere else. Does not itch or burn, asymptomatic otherwise. Patient states that he has not had a wound VAC on his right lower extremity the past 2 days. He also had recent cardiac medication change about 2 weeks prior prior to this visit. Denies fevers or chills, intraoral lesions, blood in his stool, difficulty breathing, facial swelling, or any other concerns. Hb noted the patient currently has osteomyelitis, wound VAC is not in place and at goal care, also had medication change 2 weeks prior to this visit which is complicating care. History was obtained via conversation with patient. On arrival, patient hemodynamically stable, alert, oriented x4, appropriate, GCS 15, moving all extremities spontaneously, pupils equal and reactive to light. Full physical exam performed and significant for diffuse macular rash from head to feet. Spares palms. Proximal/medial thighs purpuric and does not dk. No evidence of lymphadenopathy. No intraoral or ocular lesions. Patient does have 1 cm circular lesion on anterior right [place] which is draining and ma lodorous. Appears to be contacting bone. Differential includes infectious, toxin mediated, medication induced, among others. Patient was given dalbavancin for symptomatic management and correction of underlying abnormalities. Workup independently interpreted and significant for actionable CBC or chemistry. Platelets within normal limits. Lactate negative. On reevaluation, patient resting comfortably bed. Requesting to be discharged, after conversation, this was deemed to be reasonable because patient given dalbavancin today. Patient also states that he has follow-up with his primary care doctor sometime this week, was recommended that he keep this appointment. Return precautions were given. Because patient at baseline without signs or symptoms of clinical decompensation, deemed appropriate for discharge. Results were relayed to patient who voiced understanding and were agreeable to outpatient management and follow up. At the time of discharge the patient was hemodynamically stable, tolerating PO, and mobilizing appropriately. Critical Care Critical Care Time Critical Care Time: No
[2023-04-29 12:05] VITALS: BP 121/77; PULSE 98; O2SAT 96
[2023-04-29 12:05] LABS: Basophils % 0.4 % (0.1-2.0); Eosinophils # 0.1 K/mm3 (0.0-0.4); Eosinophils % 1.5 % (0.1-12.0); Hematocrit 50.8 % (42.0-52.0); Hemoglobin 15.9 g/dL (14.1-18.0); Lymphocytes # 1.4 K/mm3 (0.7-4.5); Lymphocytes % 17.1 % (10-50); Mean Corpuscular HGB Conc 31.3 g/dL (31.8-35.4); Mean Corpuscular Hemoglobin 29.4 pg (27.0-31.2); Mean Corpuscular Volume 94.2 fl (80-94); Monocytes # 0.5 K/mm3 (0.1-1.0); Monocytes % 5.6 % (1.7-9.3); Neutrophils # 6.2 K/mm3 (1.8-7.8); Neutrophils % 75.4 % (37.0-80.0); Platelet Count 367 K/mm3 (142-424); Red Cell Distribution Width 14.8 % (11.5-17.5); White Blood Count 8.3 K/mm3 (4.8-10.8)
[2023-04-29] MEDS: DALBAVANCIN HCL 1,500 MG in DEXTROSE 5 % IN WATER 250 ML 500 MG IV (12:07)
[2023-04-29 12:10] LABS: Chloride 98 mmol/L (98-107); Sodium 135 mmol/L (136-145)
[2023-04-29 12:12] LABS: Blood Urea Nitrogen 9 mg/dl (9-20); Creatinine Clearance Estimated 105 mL/min (50-200); Estimated Glomerular Filt Rate 115 ml/min (>60); GFR (African American) 139 ML/MIN (>60)
[2023-04-29 12:13] LABS: Alanine Aminotransferase 26 U/L (12-78); Albumin Level 3.5 g/dl (3.5-5.0); Albumin/Globulin Ratio 0.8 (1.1-1.8); Alkaline Phosphatase 136 U/L (38-126); Aspartate Amino Transferase 30 U/L (17-59); Bilirubin,Total 0.6 mg/dl (0.2-1.3); Calcium 8.9 mg/dl (8.4-10.2); Carbon Dioxide 31 mmol/L (22.0-30.0); Globulin 4.4 g/dL (1.3-3.2); Glucose 243 mg/dl (74-100); Total Protein,Serum 7.9 g/dl (6.3-8.2)
[2023-04-29 12:14] LABS: Lactic Acid 1.7 mmol/L (0.7-2.1)
[2023-04-29 12:30] VITALS: BP 130/76; PULSE 94; RESP 18; O2SAT 96
[2023-04-29 12:47] VITALS: BP 130/76; PULSE 84; RESP 18; TEMP 36.6; O2SAT 97
--- NOTE | 2023-05-02 06:35 | PC.NURSE ---
dalbavancin given in ER ptd. initial prelim blood cx's negative. waiting on final report. no atb therapy for home noted.
== END 2023-04-29 12:49 | disposition home or self-care (01) ==
PROVIDERS: Emergency Provider Emergency Medicine; PCP Family Medicine
DX: R21 Rash and other nonspecific skin eruption (principal); L03.115 Cellulitis of right lower limb; E11.622 Type 2 diabetes mellitus with other skin ulcer; E11.69 Type 2 diabetes mellitus with other specified complication; L97.916 Non-pressure chronic ulcer of unspecified part of right lower leg with bone involvement without evidence of necrosis; M86.161 Other acute osteomyelitis, right tibia and fibula; E11.51 Type 2 diabetes mellitus with diabetic peripheral angiopathy without gangrene; F17.210 Nicotine dependence, cigarettes, uncomplicated
CPT/HCPCS: 80053; 83605; 85025; 87040; 96374; 99285; J0875

== ENCOUNTER 2023-07-12 18:40 | Outpatient (CLI) | payer MEDICARE, SELFPAY | END 2023-07-12 23:59 | LOC: LAB.DROPOF 18:45 | PROVIDERS: PCP Nurse Practitioner Family; Visit Provider Nurse Practitioner Family | DX: M79.671 Pain in right foot (principal); B96.1 Klebsiella pneumoniae [K. pneumoniae] as the cause of diseases classified elsewhere | CPT/HCPCS: 87070; 87205 ==